=== PATIENT | female | born 1975 | race Caucasian/White ===

== ENCOUNTER → 2018-04-27 | Outpatient (CLI) | payer OTHER ==
[~2018-04-27] MED LIST: AUGMENTIN 875875 MG; IBUPROFEN 600600 M1 PO; IRON325 PO; MAGNESIUM250 M1 PO; MEDROLDOSEPACK PO; MULTI-DAY VITA1 EACH PO; PROVERA10 MG PO; ZOFRAN ODT4 MG PO; iron PO
--- NOTE | 2018-04-27 13:04 | EXE ---
[place] [address] STRESS ECHOCARDIOGRAM Name: PETRONA CARUSO I Room: [facility]#: [id number] Admission: 04/27/18 Attend Phys: Justin Michael, Discharge: Date of : 77 Date of Service: 04/27/18 1304 Report #: [id number] THIS REPORT FOR: //name// APPROVED REPORT Study performed: 04/27/2018 11:44:49 Exam: Stress Echocardiogram Indication: Palpitations Patient Location: Out-Patient Stress Nurse: Saira Garcia RN Supervising Physician: Justin Michael MD Ht: 5 ft 8 in HR: 75 bpm BP: 150/104 mmHg Medical History Medications: No cardiac medications Cardiac Risk Factors: FHX of CAD Procedure The patient underwent an Exercise Stress Test using the Cesar Protocol. Blood pressure, heart rate, and EKG were monitored. An Echocardiogram was performed by accessibility lift technician in four stages in quad fashion. At peak stress, four selected images were obtained and placed side by side with resting images for comparison. Stress Test Details Stress Test: Exercise stress testing was performed using a Cesar protocol. HR Resting HR: 75 bpm Max Heart Rate (APMHR): 179 bpm Max HR Achieved: 160 bpm Target HR (85% APMHR): 152 bpm % of APMHR: 89 Recovery HR: 97 bpm HR response to stress: Normal HR response to stress BP Resting BP: 150/104 mmHg Max BP: 192/110 mmHg Recovery BP: 144/92 mmHg ECG Resting ECG: Sinus Rhythm Stress ECG: [place] [address] STRESS ECHOCARDIOGRAM Name: PETRONA CARUSO I Room: [facility]#: [id number] Admission: 04/27/18 Attend Phys: Justin Michael, Discharge: Date of : 77 Date of Service: 04/27/18 1304 Report #: [id number] ST Change: Upsloping ST depression Maximum ST Deviation: 0.5 mm Arrhythmia: None Recovery ECG: Sinus Rhythm Recovery ST Change: Normal Clinical Reason for Termination: Dyspnea Stress Symptoms: Fatigue Exercise duration: 7 min 19 sec Highest Stage Achieved: Stage 3: 3.4 mph at 14% grade. Exercise capacity: 9.08 METs Stress ECG Conclusion equivocal ecg findings Pre-Stress Echo The resting Echocardiogram showed normal left ventricular contractility with an estimated Ejection Fraction of about >55%. Post-Stress Echo LV chamber size decreases, LV ejection fraction increases, no new wall motion abnormalities are seen. Conclusion Clinical Response: Non-ischemic Exercise Capacity: Normal Stress ECG Response: Equivocal Stress Echo Images: Non-ischemic Negative treadmill stress echo for ischemia. The ecg findings are likely false positive. Other Information Study Quality: Fair <Conclusion> Negative treadmill stress echo for ischemia. The ecg findings are likely false positive. <ELECTRONICALLY SIGNED> By: Justin Michael MD, FACC 04/27/18 1304 1304 1304 Justin Michael MD, FACC /INF
== END ==
LOC: M.CRD 11:00
DX: I49.3 Ventricular premature depolarization (principal); R00.2 Palpitations

== ENCOUNTER 2019-07-21 09:27 | Emergency (ER) | payer OTHER ==
[~2019-07-21] VITALS: Ht 170.2 cm; Wt 98.0 kg
[2019-07-21 10:18] LABS: ABSOLUTE EOSINOPHILS 0.1 thou/uL (0.0-0.7); ABSOLUTE MONOCYTES 0.4 thou/uL (0.0-1.2); ABSOLUTE NEUTROPHILS 3.7 thou/uL (1.6-8.1); BASOPHILS 0.6 %; EOSINOPHILS 1.1 %; HEMATOCRIT 39.8 % (37.0-47.0); HEMOGLOBIN 13.5 gm/dL (12.0-15.0); LYMPHOCYTES 18.5 %; MCH 30.5 pg (26.0-34.0); MCHC 33.8 g/dL (28.0-37.0); MCV 90.4 fL (80.0-100.0); MONOCYTES 8.6 %; NUCLEATED RBCS 0 /100WBC; PLATELET COUNT* 252 thou/uL (150-400); POLYS 71.2 %; RBC 4.41 mil/uL (4.20-5.00); RDW-CV 13.6 % (10.5-14.5); WBC 5.2 thou/uL (4.0-11.0)
[2019-07-21 10:27] LABS: CALCIUM 9.1 mg/dL (8.5-10.1); CREATININE 0.8 mg/dL (0.6-1.3); POTASSIUM 4.1 mmol/L (3.5-5.1)
[2019-07-21 10:31] LABS: ALBUMIN 3.7 g/dL (3.4-5.0); TOTAL BILIRUBIN 0.6 mg/dL (<0.1-1.0); TOTAL PROTEIN 7.1 g/dL (6.4-8.2)
[2019-07-21 10:48] LABS: URINE BILIRUBIN NEGATIVE (Negative); URINE BLOOD NEGATIVE (Negative); URINE CLARITY CLEAR; URINE COLOR YELLOW; URINE GLUCOSE-RANDOM NEGATIVE (Negative); URINE KETONES NEGATIVE (Negative); URINE LEUKOCYTES-REFLEX NEGATIVE (Negative); URINE NITRITE-REFLEX NEGATIVE (Negative); URINE PROTEIN NEGATIVE (Negative); URINE SPECIFIC GRAVITY 1.015 (1.005-1.030); URINE UROBILINOGEN 0.2 E.U./dl (0.2-1.0)
[2019-07-21 12:34] VITALS: BP 119/76
--- NOTE | 2019-07-22 14:28 | EKG ---
[place] [address] ELECTROCARDIOGRAM REPORT Name: PETRONA CARUSO I Room: [facility]#: [id number] Admission: 07/21/19 Attend Phys: Discharge: 07/21/19 Date of : 77 Report #: [id number] THIS REPORT FOR: //name// [facility] ED Test Date: 2019-07-21 Test Time: 09:39:56 Pat Name: PETRONA CARUSO Department: Room: Gender: F Shearer Operator: : 1975 Requested By: Swapna Carlson Order Number: [id number] MD: Kai Ortega Measurements Intervals [place] Rate: 73 P: 1 WA: 165 QRS: -13 QRSD: 88 T: 4 QT: 383 QTc: 422 Interpretive Statements Sinus rhythm Low voltage, precordial leads Compared to ECG 03/13/2017 10:44:39 No significant changes Electronically Signed On 07-22-2019 14:28:48 LAP MACHINE TENDER by Kai Ortega [email or web address] <ELECTRONICALLY SIGNED> By: Kai Ortega MD, [facility] 07/22/19 1428 8 8 Kai Ortega MD, FACC /EPI
== END 2019-07-21 12:35 | disposition home or self-care (01) ==
LOC: M.ERS 09:27
PROVIDERS: Personal Emergency Response Attendant
DX: R55 Syncope and collapse (principal); Z90.49 Acquired absence of other specified parts of digestive tract; Z86.2 Personal history of diseases of the blood and blood-forming organs and certain disorders involving the immune mechanism; Z88.1 Allergy status to other antibiotic agents; Z88.6 Allergy status to analgesic agent; Z88.8 Allergy status to other drugs, medicaments and biological substances

== ENCOUNTER → 2019-07-27 | Outpatient (CLI) | payer OTHER | LOC: M.ULTRA 07-23 09:00 | DX: R19.03 Right lower quadrant abdominal swelling, mass and lump (principal); R59.9 Enlarged lymph nodes, unspecified ==